=== PATIENT | male | born 1970 | race Two or more races ===

== ENCOUNTER 2022-08-30 01:59 | Emergency (ER) | payer OTHER ==
[~2022-08-30] VITALS: Ht 190.5 cm; Wt 68.2 kg
[2022-08-30 02:40] LABS: Eosinophils # (auto) 0 10 ^3/uL (0-0.8)
[2022-08-30 02:42] LABS: Basophils # (auto) 0 10 ^3/uL (0-0.2); Basophils % (auto) 0.3 % (0.0-2.0); Eosinophils % (auto) 0.2 % (0.0-7.0); Hematocrit 31.1 % (41.0-53.0); Hemoglobin 10.2 g/dL (13.5-17.5); Lymphocytes # (auto) 1.8 10 ^3/uL (0.4-5.4); Lymphocytes % (auto) 10.5 % (10.0-50.0); Mean Corpuscular Hemoglobin 30.4 pg (28.0-32.0); Mean Corpuscular Hgb Conc. 32.9 g/dL (32.0-36.0); Mean Corpuscular Volume 92.3 fL (80.0-100.0); Monocytes % (auto) 6.1 % (0.0-12.0); Neutrophils % (auto) 82.9 % (37.0-80.0); Red Blood Cells 3.37 10^6/uL (4.5-5.90); Red Cell Distribution Width 13.5 % (11.8-14.3); White Blood Cell 16.9 10^3/uL (4.4-10.8)
[2022-08-30] MEDS ORDERED: IOHEXOL 350 MG/ML 100ML IJ ONE (02:49)
[2022-08-30 02:54] LABS: INR 1.02 (0.9-1.15); Partial Thromboplastin Time 26.5 sec (24.6-33.4)
[2022-08-30 02:55] LABS: Albumin 3.3 g/dL (3.4-5.0); Calcium 8.3 mg/dL (8.5-10.1); Magnesium 2.4 mg/dL (1.6-2.6); Potassium 4.8 mmol/L (3.5-5.1)
[2022-08-30 03:00] LABS: BUN/Creatinine Ratio 14.4 (10.0-20.0); Bilirubin, Total 0.4 mg/dL (0.2-1.0); Total Protein 7.1 g/dL (6.4-8.2)
[2022-08-30] MEDS ORDERED: ENOXAPARIN SOD 100 MG/1 ML SYRINGE SC ONE (05:00)
[2022-08-30] MEDS ORDERED: HYDROmorphone HCL 2 MG/ML VL/or syr IV ONE ×2 (05:45→08:15)
[2022-08-30] MEDS ORDERED: ONDANSETRON HCL 4 MG/2 ML VIAL IV ONE (05:45)
[2022-08-30 10:37] VITALS: BP 110/59
== END 2022-08-30 11:16 | disposition short-term general hospital (02) ==
LOC: ER 01:59
DX: I26.99 Other pulmonary embolism without acute cor pulmonale (principal); M79.89 Other specified soft tissue disorders; Z98.890 Other specified postprocedural states
CPT/HCPCS: 36415; 71045; 71260; 73701; 74177; 80053; 83735; 83880; 84484; 85025; 85610; 85730; 93005; 96372; 96374; 96375; 96376; 99285; J1170; J1650; J2405; Q9967